=== PATIENT | male | born 1955 | race Caucasian/White ===

== ENCOUNTER 2021-05-24 09:19 | Emergency (ER) | payer MEDICARE, OTHER ==
[~2021-05-24 09:19] MED LIST: ASPIRIN EC81 MG PO; CRESTOR20 MG PO; DECADRON4 MG PO; IMDUR 30MG TABL30 MG PO; NITROQUIK SL0.4 MG SL; PROTONIX 40MG T40 MG PO; REGLAN10 MG PO; ZYPREXA 5MG TABL5 MG PO
[2021-05-24 10:04] LABS: BASOPHIL 0.4 % (0-2); EOSINOPHIL 0.1 % (0-7); HCT 30.9 % (42.0-52.0); HGB 10.1 g/dl (13.2-18.0); LYMPHOCYTE 6.9 % (15-48); MCH 30.7 pg (25.0-31.0); MCHC 32.7 g/dL (32.0-36.0); MCV 93.9 fL (78.0-100.0); MONOCYTE 6.5 % (0-12); MPV 12.4 fL (6.0-9.5); NEUTROPHIL 84.6 % (41-80); NRBC 0.8; PLT 388 K/uL (150-400); RBC 3.29 M/uL (4.70-6.00); RDW 19.7 % (11.5-14.0); WBC 13.6 K/uL (4.0-10.5)
[2021-05-24 10:11] LABS: INR 1.31 (0.9-1.2); PROTHROMBIN TIME 15.6 SECONDS (11.8-13.4); PTT 39.1 SECONDS (24.4-34.7)
[2021-05-24 10:23] LABS: IRON 58 ug/dL (65-175); IRON % SATURATION 165.7 %SAT (20-50)
[2021-05-24 10:29] LABS: LACTIC ACID 1.3 mmol/L (0.4-1.9)
[2021-05-24 10:30] LABS: ALBUMIN 1.2 g/dL (3.4-5.0); BILIRUBIN - TOTAL 1.3 mg/dL (0.2-1.0); BUN/CREAT RATIO (CALC) 8.5 RATIO; CREATININE 2.83 mg/dL (0.67-1.17); FT4 (FREE T4) 0.8 ng/dL (0.76-1.46); GLOBULIN (CALCULATION) 3.3 g/dL; MAGNESIUM 1.6 mg/dL (1.8-2.4); POTASSIUM 4.8 mmol/L (3.5-5.1); TOTAL PROTEIN 4.5 g/dL (6.4-8.2)
== END 2021-05-24 17:42 | disposition other institution (70) ==
LOC: FER 09:19
PROVIDERS: Emergency Medicine
DX: J18.1 Lobar pneumonia, unspecified organism (principal); R65.10 Systemic inflammatory response syndrome (SIRS) of non-infectious origin without acute organ dysfunction; N17.9 Acute kidney failure, unspecified; I10 Essential (primary) hypertension; E10.9 Type 1 diabetes mellitus without complications; Z87.891 Personal history of nicotine dependence; Z20.822 Contact with and (suspected) exposure to COVID-19
CPT/HCPCS: 36415; 71045; 80053; 83540; 83550; 83605; 83690; 83735; 84145; 84439; 84443; 84484; 85025; 85610; 85730; 87040; 87077; 87186; 93005; J2543; J3370; J3475; J7030; J7040; J7050; U0002